=== PATIENT | male | born 1970 | race Caucasian/White ===

== ENCOUNTER → 2017-03-17 | Outpatient (CLI) | payer BC, OTHER ==
[~2017-03-17] VITALS: Ht 180.3 cm; Wt 90.7 kg
[~2017-03-17] MED LIST: CATHETER FLUSH 10 ML SYR IVP PRN; GADOBUTROL 7.5 MMOL/7.5 ML (GADAVIST) VIAL IV ONE; IOHEXOL 300 MG/ML 30 ML (OMNIPAQUE 300) VIAL IV ONE
[2017-03-17 13:43] VITALS: BP 120/64
--- NOTE | 2017-03-17 15:09 | Diagnostic Imaging Report ---
EXAMINATION: Fluoroscopic guided joint injection/arthrogram- left. INDICATION: Left shoulder pain, request for MR arthrogram of the shoulder is submitted. Fluoroscopy time: 32 CONSENT: Informed consent was obtained from the patient. The risks, benefits, potential complications and alternatives were reviewed and all questions answered to the patient's satisfaction. PROCEDURE: After sterile preparation and draping, 1% lidocaine was utilized for local anesthesia. A 22 spinal needle is introduced into the glenohumeral joint under fluoroscopic guidance. After confirmation of proper positioning with intra-articular injection of, 15 ml of 1:150 concentration of Gadavist in normal saline is injected the into the joint. The patient tolerated the procedure well with no immediate complications. FINDINGS: Arthrogram demonstrates Normal distribution of contrast in the joint with no filling of the subacromial subdeltoid bursa seen. IMPRESSION: Successful fluoroscopic guided injection of diluted gadolinium into the left shoulder . MR arthrogram to follow. Dictated by: Dictated on workstation # [id number]
--- NOTE | 2017-03-17 15:38 | Diagnostic Imaging Report ---
PROCEDURE: MRI left joint upper extremity with contrast. TECHNIQUE: Multiplanar, multisequence MR imaging of the left shoulder was performed without contrast. COMPARISON: Shoulder MRI from 07/15/2008. INDICATION: Left shoulder pain. Patient reports prior labral tear with surgery. FINDINGS: Rotator cuff: No high-grade partial or full-thickness rotator cuff tear. There is a focal partial-thickness interstitial tear of the anterior-most insertional fibers of the supraspinatus which measures less than 5 mm in AP direction. Remainder of the rotator cuff is intact. No rotator cuff muscle atrophy or denervation injury. Glenoid labrum: There are soft tissue anchors in the anterosuperior aspect of the glenoid from prior labral repair. The overlying anterosuperior labrum has heterogeneous attenuation and truncated morphology which may relate to debridement or degenerative tearing. Focal full-thickness chondral fissuring is present adjacent to one of the anchors (best seen on image 12, series 9). Long head of biceps: Long head of biceps is normally positioned within the bicipital groove. The intracapsular segment has heterogeneous thickening but remains intact, indicative of mild tendinopathy. Bones and cartilage: Humeral head is normal in morphology without fracture or focal osseous lesion. Focal cartilage defects detail above in the labrum section. Otherwise, articular cartilage is normal. The acromioclavicular joint is normal in alignment without significant degenerative change. Soft tissues: Glenohumeral joint is well distended with intra-articular contrast and there is no proliferative synovitis or loose bodies. No MRI findings to suggest adhesive capsulitis. No fluid or inflammatory like signal within the subacromial/subdeltoid space to indicate bursitis. IMPRESSION: 1. Prior anterosuperior labral repair. The anterosuperior labrum has a diminutive appearance which may relate to debridement or recurrent tearing. There is focal chondral fissuring adjacent to the anterosuperior labral abnormality. 2. Focal low-grade partial-thickness interstitial tear of the anterior-most insertional fibers of supraspinatus. 3. Mild tendinopathy of the intracapsular segment of the long head of the biceps, which remains intact. Dictated by: Dictated on workstation # [id number]
== END ==
LOC: RAD 13:23
PROVIDERS: ATTEND Orthopaedic Surgery
DX: M75.102 Unspecified rotator cuff tear or rupture of left shoulder, not specified as traumatic (principal); M75.22 Bicipital tendinitis, left shoulder
CPT/HCPCS: 23350; 73040; 73222